=== PATIENT | male | born 1945 | race Two or more races ===

== ENCOUNTER 2017-07-19 15:38 | Inpatient (IN) | payer MEDICAID, MEDICARE ==
[~2017-07-19] VITALS: Ht 160 cm; Wt 61.0 kg
[~2017-07-19 15:38] MED LIST: AMLO10TA2 PO; B-COTAB10 OR; CAR125T OR; CLON0.2T PO; ENAL20TA70 PO; HYDR-3682 PO; SEVE800T8 PO
[2017-07-19] MEDS ORDERED: SODIUM BICARBONATE 8.4% INJ 50ML SYRINGE ONE ×2 (15:53→22:44)
[2017-07-19] MEDS ORDERED: CALCIUM CHLOR(10%) 100MG/ML 10ML SYRINGE IV ONE (15:53)
[2017-07-19] MEDS ORDERED: InsuLIN REG 1unit/0.01ml Soln (100units/ml) ONE (15:54)
[2017-07-19] MEDS ORDERED: CALCIUM GLUC 4.65meq/50ml D5AE 50 ML IV ONE ×3 (16:00→22:30)
[2017-07-19] MEDS ORDERED: InsuLIN REG 1unit/0.01ml Soln (100units/ml) IV ONE ×2 (16:00→22:30)
[2017-07-19] MEDS ORDERED: SODIUM BICARBONATE 8.4 % INJ 50ML VIAL IV ONE ×4 (16:00→22:45)
[2017-07-19] MEDS ORDERED: cloNIDine HCL 0.1 MG TAB PO PRN (16:30)
[2017-07-19] MEDS ORDERED: TEMAZEPAM 15 MG CAP PO PRN (16:30)
[2017-07-19] MEDS ORDERED: ACETAMINOPHEN 325 MG TAB PO PRN (16:30)
[2017-07-19] MEDS ORDERED: HYDROcodone-ACET 5/325MG TAB PO PRN (16:30)
[2017-07-19] MEDS ORDERED: MORPHINE SULF(PF) 0.5MG/ML 10ML VIAL IV PRN (16:30)
[2017-07-19] MEDS ORDERED: DOCUSATE SOD 100 MG CAP PO PRN (16:30)
[2017-07-19] MEDS ORDERED: DEXTROSE (50%) 50ML SYRG IV PRN (16:30)
[2017-07-19] MEDS ORDERED: NITROGLYCERIN 0.4 MG SL TAB SL PRN (16:30)
[2017-07-19] MEDS ORDERED: ONDANSETRON HCL 4 MG/2 ML VIAL IV PRN (16:30)
[2017-07-19 16:44] LABS: Basophils # (auto) 0 uL; Lymphocytes # (auto) 0.6 uL; Monocytes # (auto) 0.4 uL; Neutrophils # (auto) 3.5 uL; White Blood Cell 4.7 10^3/uL (4.4-10.8)
[2017-07-19 16:47] LABS: Eosinophils # (auto) 0.1 uL; Eosinophils % (auto) 3.1 % (0.0-7.0); Hemoglobin 9.2 g/dL (13.5-17.5); Lymphocytes % (auto) 12.6 % (10.0-50.0); Mean Corpuscular Hemoglobin 35.3 pg (28.0-32.0); Mean Corpuscular Hgb Conc. 34.2 g/dL (32.0-36.0); Mean Corpuscular Volume 103.3 fL (80.0-100.0); Monocytes % (auto) 8.6 % (0.0-12.0); Neutrophils % (auto) 74.7 % (37.0-80.0); Red Blood Cells 2.62 10^6/uL (4.5-5.90); Red Cell Distribution Width 12.9 % (11.8-14.3)
[2017-07-19 16:54] LABS: Platelet Count (auto) 107 10^3/uL (140-450)
[2017-07-19] MEDS: InsuLIN REG 1unit/0.01ml Soln (100units/ml) SC SCH ×2 (17:00→21:45)
[2017-07-19 17:09] LABS: Albumin 3.2 g/dL (3.4-5.0); Bilirubin, Total 0.3 mg/dL (0.2-1.0); Calcium 9.8 mg/dL (8.5-10.1); Magnesium 3.1 mg/dL (1.6-2.6); Total Protein 6.7 g/dL (6.4-8.2)
[2017-07-19] MEDS: ACCU-CHEK COMFORT CURVE STRIP VI SCH ×2 (17:25→22:06)
[2017-07-19 17:29] LABS: INR 1.06 (0.9-1.15); Prothrombin Time 11.3 sec (9.27-12.13)
[2017-07-19 17:39] LABS: Potassium 6.3 mmol/L (3.5-5.1)
[2017-07-19] MEDS ORDERED: SODIUM POLYSTYRENE SULF 15GM/60ML SUSP PO ONE (18:15)
[2017-07-19] MEDS: SEVELAMER 800 MG TAB PO SCH (18:58)
[2017-07-19] MEDS: SODIUM CHLOR 0.9% PF (SALINE LOCK) 10ML VIAL/SYR IV SCH (21:27)
[2017-07-19] MEDS: ATORVASTATIN 20 MG TAB PO SCH (21:45)
[2017-07-19] MEDS: GABAPENTIN 300 MG CAP PO SCH (21:45)
[2017-07-19 21:55] LABS: BUN/Creatinine Ratio 9.3; Calcium 9.9 mg/dL (8.5-10.1)
[2017-07-19] MEDS ORDERED: FAMOTIDINE 20 MG TAB PO SCH (22:00)
[2017-07-19] MEDS ORDERED: cloNIDine HCL 0.1 MG TAB PO SCH (22:00)
[2017-07-19 22:09] LABS: Potassium 7.7 mmol/L (3.5-5.1)
[2017-07-19] MEDS ORDERED: DEXTROSE (50%) 50ML SYRG IV ONE ×2 (22:30→22:45)
[2017-07-19] MEDS ORDERED: ALBUTEROL SULF 2.5 MG/0.5ML(0.5%) NEB SOLN NEB ONE (22:45)
[2017-07-20 01:31] LABS: Anion Gap 16 (5-15); Carbon Dioxide 30 mmol/L (21-32); Chloride 92 mmol/L (98-107); Sodium 138 mmol/L (136-145)
[2017-07-20 01:32] LABS: BUN/Creatinine Ratio 9.6; Calcium 9.7 mg/dL (8.5-10.1); GFR African American 6 mL/min; GFR Non-African American 5 mL/min; Glucose 230 mg/dL (74-106)
[2017-07-20 01:34] LABS: Blood Urea Nitrogen 113 mg/dL (7-18); Potassium 5.7 mmol/L (3.5-5.1)
[2017-07-20 05:49] LABS: Basophils # (auto) 0 uL; Eosinophils # (auto) 0.1 uL; Eosinophils % (auto) 1.7 % (0.0-7.0); Hemoglobin 9.7 g/dL (13.5-17.5); Lymphocytes # (auto) 0.9 uL; Monocytes # (auto) 0.5 uL; Nucleated Red Blood Cells % 0.1 %
[2017-07-20 05:53] LABS: Basophils % (auto) 0.8 % (0.0-2.0); Hematocrit 28.1 % (41.0-53.0); Lymphocytes % (auto) 17.1 % (10.0-50.0); Mean Corpuscular Hemoglobin 35.9 pg (28.0-32.0); Mean Corpuscular Hgb Conc. 34.6 g/dL (32.0-36.0); Mean Corpuscular Volume 103.6 fL (80.0-100.0); Monocytes % (auto) 9.9 % (0.0-12.0); Neutrophils # (auto) 3.8 uL; Neutrophils % (auto) 70.5 % (37.0-80.0); Platelet Count (auto) 102 10^3/uL (140-450); Red Blood Cells 2.71 10^6/uL (4.5-5.90); Red Cell Distribution Width 13.1 % (11.8-14.3); White Blood Cell 5.4 10^3/uL (4.4-10.8)
[2017-07-20] MEDS: SODIUM CHLOR 0.9% PF (SALINE LOCK) 10ML VIAL/SYR IV SCH ×3 (06:20→22:00)
[2017-07-20 06:37] LABS: Albumin 3.5 g/dL (3.4-5.0); BUN/Creatinine Ratio 9.6; Bilirubin, Total 0.4 mg/dL (0.2-1.0); Calcium 9.6 mg/dL (8.5-10.1); Potassium 5.2 mmol/L (3.5-5.1); Total Protein 6.8 g/dL (6.4-8.2)
[2017-07-20] MEDS: InsuLIN REG 1unit/0.01ml Soln (100units/ml) SC SCH ×4 (07:00→22:00)
[2017-07-20] MEDS: ACCU-CHEK COMFORT CURVE STRIP VI SCH ×4 (07:04→22:00)
[2017-07-20] MEDS: SEVELAMER 800 MG TAB PO SCH ×3 (08:00→18:00)
[2017-07-20] MEDS: Boost Glucose Control 8 Ounces PO SCH ×3 (08:00→18:00)
[2017-07-20] MEDS ORDERED: EPOETIN ALFA 10,000 UNIT/1 ML VIAL IV ONE (09:00)
[2017-07-20] MEDS: B-COMPLEX W/ C & FOLIC ACID(NEPHROVITE TAB) PO SCH (09:41)
[2017-07-20] MEDS: MULTIPLE VITAMIN TAB PO SCH (09:41)
[2017-07-20] MEDS: amLODIPine BESYLATE 5 MG TAB PO SCH (09:42)
[2017-07-20] MEDS: NALBUPHINE HCL 10 MG/1ml INJECTION IV PRN ×3 (11:29→12:39)
[2017-07-20 14:04] LABS: Albumin 3.8 g/dL (3.4-5.0); BUN/Creatinine Ratio 7.1; Calcium 9.1 mg/dL (8.5-10.1); Potassium 4.8 mmol/L (3.5-5.1)
[2017-07-20 14:06] LABS: Bilirubin, Total 0.6 mg/dL (0.2-1.0); Total Protein 8.1 g/dL (6.4-8.2)
[2017-07-20 17:11] VITALS: BP 136/56
[2017-07-20] MEDS: GABAPENTIN 300 MG CAP PO SCH (22:00)
[2017-07-20] MEDS: FAMOTIDINE 20 MG TAB PO SCH (22:00)
[2017-07-20] MEDS: ATORVASTATIN 20 MG TAB PO SCH (22:00)
[2017-07-21 05:26] LABS: Basophils # (auto) 0.1 uL; Eosinophils # (auto) 0.1 uL; Lymphocytes # (auto) 0.6 uL; Monocytes # (auto) 0.5 uL; Monocytes % (auto) 8.2 % (0.0-12.0); Neutrophils # (auto) 4.7 uL; Nucleated Red Blood Cells % 0.1 %; Platelet Count (auto) 134 10^3/uL (140-450)
[2017-07-21 05:28] LABS: Basophils % (auto) 1.2 % (0.0-2.0); Eosinophils % (auto) 2.1 % (0.0-7.0); Hematocrit 30.9 % (41.0-53.0); Hemoglobin 10.7 g/dL (13.5-17.5); Lymphocytes % (auto) 10.5 % (10.0-50.0); Mean Corpuscular Hgb Conc. 34.6 g/dL (32.0-36.0); Mean Corpuscular Volume 103.2 fL (80.0-100.0); Red Blood Cells 2.97 10^6/uL (4.5-5.90); Red Cell Distribution Width 13.1 % (11.8-14.3)
[2017-07-21 05:29] LABS: Mean Corpuscular Hemoglobin 35.3 pg (28.0-32.0)
[2017-07-21 05:42] LABS: BUN/Creatinine Ratio 7.1; Calcium 8.8 mg/dL (8.5-10.1); Magnesium 2.5 mg/dL (1.6-2.6); Potassium 5.4 mmol/L (3.5-5.1)
[2017-07-21] MEDS: SODIUM CHLOR 0.9% PF (SALINE LOCK) 10ML VIAL/SYR IV SCH ×3 (06:13→22:14)
[2017-07-21] MEDS: ACCU-CHEK COMFORT CURVE STRIP VI SCH ×4 (07:08→22:23)
[2017-07-21] MEDS: InsuLIN REG 1unit/0.01ml Soln (100units/ml) SC SCH ×4 (07:08→22:23)
[2017-07-21] MEDS: Boost Glucose Control 8 Ounces PO SCH ×3 (08:30→18:43)
[2017-07-21] MEDS: MULTIPLE VITAMIN TAB PO SCH (10:03)
[2017-07-21] MEDS: SEVELAMER 800 MG TAB PO SCH ×3 (10:03→18:43)
[2017-07-21] MEDS: B-COMPLEX W/ C & FOLIC ACID(NEPHROVITE TAB) PO SCH (10:03)
[2017-07-21] MEDS: amLODIPine BESYLATE 5 MG TAB PO SCH (10:03)
[2017-07-21] MEDS ORDERED: CAR3125T PO (12:12)
[2017-07-21] MEDS ORDERED: CLON0.1T PO ×2 (12:12→15:24)
[2017-07-21] MEDS ORDERED: ENAL20TA70 PO ×2 (12:12→13:26)
[2017-07-21] MEDS ORDERED: amLODIPine BESYLATE 5 MG TAB PO ONE (14:15)
[2017-07-21] MEDS ORDERED: CAR125T PO (15:24)
[2017-07-21] MEDS ORDERED: LORazepam 0.5 MG TAB PO ONE (16:30)
[2017-07-21] MEDS ORDERED: CARVEDILOL 3.125 MG TAB PO ONE (16:30)
[2017-07-21] MEDS ORDERED: cloNIDine HCL 0.1 MG TAB PO SCH ×2 (22:00)
[2017-07-21] MEDS: CARVEDILOL 3.125 MG TAB PO SCH (22:00)
[2017-07-21] MEDS: cloNIDine HCL 0.1 MG TAB PO SCH (22:14)
[2017-07-21] MEDS: ATORVASTATIN 20 MG TAB PO SCH (22:15)
[2017-07-21] MEDS: GABAPENTIN 300 MG CAP PO SCH (22:15)
[2017-07-21] MEDS: FAMOTIDINE 20 MG TAB PO SCH (22:15)
[2017-07-22 00:27] VITALS: BP 146/64
[2017-07-22 05:03] VITALS: BP 139/56
[2017-07-22] MEDS: ACCU-CHEK COMFORT CURVE STRIP VI SCH ×4 (05:49→23:13)
[2017-07-22] MEDS: InsuLIN REG 1unit/0.01ml Soln (100units/ml) SC SCH ×4 (05:49→22:00)
[2017-07-22] MEDS: SODIUM CHLOR 0.9% PF (SALINE LOCK) 10ML VIAL/SYR IV SCH ×3 (05:49→22:56)
[2017-07-22 06:48] LABS: Potassium 5.5 mmol/L (3.5-5.1)
[2017-07-22 07:11] LABS: BUN/Creatinine Ratio 7.7
[2017-07-22] MEDS ORDERED: LORazepam 0.5 MG TAB PO PRN (09:15)
[2017-07-22] MEDS ORDERED: amLODIPine BESYLATE 5 MG TAB PO SCH (10:00)
[2017-07-22] MEDS ORDERED: ENALAPRIL MALEATE 10 MG TAB PO SCH (10:00)
[2017-07-22] MEDS: CARVEDILOL 3.125 MG TAB PO SCH ×2 (10:00→22:00)
[2017-07-22] MEDS: cloNIDine HCL 0.1 MG TAB PO SCH ×3 (10:00→22:59)
[2017-07-22] MEDS: HYDROcodone-ACET 10/325MG TAB PO PRN ×4 (10:00→17:37)
[2017-07-22] MEDS: SEVELAMER 800 MG TAB PO SCH ×3 (11:14→18:08)
[2017-07-22] MEDS: Boost Glucose Control 8 Ounces PO SCH ×3 (11:14→18:08)
[2017-07-22] MEDS: B-COMPLEX W/ C & FOLIC ACID(NEPHROVITE TAB) PO SCH (11:18)
[2017-07-22] MEDS: MULTIPLE VITAMIN TAB PO SCH (11:18)
[2017-07-22] MEDS ORDERED: CLON0.1T PO ×2 (13:35)
[2017-07-22] MEDS ORDERED: CAR3125T PO ×2 (13:35)
[2017-07-22 16:33] VITALS: BP 89/53
[2017-07-22 18:49] VITALS: BP 152/69
[2017-07-22] MEDS ORDERED: VANCOMYCIN PER PHARMACY 0 MG IV SCH (20:00)
[2017-07-22] MEDS ORDERED: VANCOMYCIN HCL 1000 MG VL IR ONE (20:00)
[2017-07-22] MEDS ORDERED: VANCOMYCIN 1GM/250ML 250 ML IV ONE (20:15)
[2017-07-22] MEDS: ACETAMINOPHEN 500 MG TAB PO PRN (20:15)
[2017-07-22 21:04] VITALS: BP 150/74
[2017-07-22] MEDS: FAMOTIDINE 20 MG TAB PO SCH (22:57)
[2017-07-22] MEDS: PIPERACILLIN-TAZOB 2.25GM 50 ML IV SCH (22:57)
[2017-07-22] MEDS: GABAPENTIN 300 MG CAP PO SCH (22:58)
[2017-07-22] MEDS: ATORVASTATIN 20 MG TAB PO SCH (23:13)
[2017-07-23] VITALS (7 sets, daily range): BP systolic 127–147; BP diastolic 53–74
[2017-07-23] MEDS: SODIUM CHLOR 0.9% PF (SALINE LOCK) 10ML VIAL/SYR IV SCH ×3 (06:47→22:24)
[2017-07-23] MEDS: ACCU-CHEK COMFORT CURVE STRIP VI SCH ×4 (06:48→22:00)
[2017-07-23] MEDS: InsuLIN REG 1unit/0.01ml Soln (100units/ml) SC SCH ×5 (06:49→23:00)
[2017-07-23] MEDS: HYDROcodone-ACET 10/325MG TAB PO PRN ×4 (07:33→18:27)
[2017-07-23] MEDS: CARVEDILOL 3.125 MG TAB PO SCH ×3 (10:00→23:54)
[2017-07-23] MEDS: cloNIDine HCL 0.1 MG TAB PO SCH ×2 (10:00→22:00)
[2017-07-23] MEDS: PIPERACILLIN-TAZOB 2.25GM 50 ML IV SCH ×2 (10:25→22:00)
[2017-07-23] MEDS: Boost Glucose Control 8 Ounces PO SCH ×3 (10:25→17:09)
[2017-07-23] MEDS: SEVELAMER 800 MG TAB PO SCH ×3 (10:25→17:53)
[2017-07-23] MEDS: B-COMPLEX W/ C & FOLIC ACID(NEPHROVITE TAB) PO SCH (10:26)
[2017-07-23] MEDS: MULTIPLE VITAMIN TAB PO SCH (10:26)
[2017-07-23 14:54] LABS: Eosinophils # (auto) 0 uL; Hematocrit 26.1 % (41.0-53.0); Hemoglobin 8.9 g/dL (13.5-17.5); Lymphocytes # (auto) 0.5 uL; Monocytes # (auto) 0.4 uL
[2017-07-23 14:55] LABS: Basophils # (auto) 0 uL; Basophils % (auto) 0.9 % (0.0-2.0); Eosinophils % (auto) 0.9 % (0.0-7.0); Lymphocytes % (auto) 9.4 % (10.0-50.0); Mean Corpuscular Hemoglobin 35.1 pg (28.0-32.0); Mean Corpuscular Hgb Conc. 34.1 g/dL (32.0-36.0); Mean Corpuscular Volume 102.9 fL (80.0-100.0); Monocytes % (auto) 7.2 % (0.0-12.0); Neutrophils # (auto) 4.5 uL; Neutrophils % (auto) 81.6 % (37.0-80.0); Red Blood Cells 2.54 10^6/uL (4.5-5.90); Red Cell Distribution Width 13.5 % (11.8-14.3); White Blood Cell 5.5 10^3/uL (4.4-10.8)
[2017-07-23 15:10] LABS: Platelet Count (auto) 100 10^3/uL (140-450)
[2017-07-23] MEDS ORDERED: VANCOMYCIN 500 MG in D5W 5% 100 ML IV ONE (16:00)
[2017-07-23] MEDS ORDERED: EPOETIN ALFA 10,000 UNIT/1 ML VIAL IV ONE (19:30)
[2017-07-23] MEDS: ACETAMINOPHEN 500 MG TAB PO PRN (20:03)
[2017-07-23] MEDS: GABAPENTIN 300 MG CAP PO SCH ×2 (22:00→23:00)
[2017-07-23] MEDS: FAMOTIDINE 20 MG TAB PO SCH ×2 (22:00→23:00)
[2017-07-23] MEDS: ATORVASTATIN 20 MG TAB PO SCH ×2 (22:00→23:00)
[2017-07-24 05:19] VITALS: BP 134/70
[2017-07-24] MEDS: SODIUM CHLOR 0.9% PF (SALINE LOCK) 10ML VIAL/SYR IV SCH ×2 (06:00→16:29)
[2017-07-24] MEDS: ACCU-CHEK COMFORT CURVE STRIP VI SCH ×3 (06:44→17:15)
[2017-07-24] MEDS: Boost Glucose Control 8 Ounces PO SCH ×2 (07:54→11:49)
[2017-07-24 08:00] VITALS: BP 146/97
[2017-07-24 08:23] LABS: Potassium 4.3 mmol/L (3.5-5.1)
[2017-07-24 08:27] LABS: Albumin 2.9 g/dL (3.4-5.0); Calcium 8.4 mg/dL (8.5-10.1)
[2017-07-24 08:30] LABS: Total Protein 6.6 g/dL (6.4-8.2)
[2017-07-24] MEDS: SEVELAMER 800 MG TAB PO SCH ×2 (08:50→11:49)
[2017-07-24 09:00] VITALS: BP 103/76
[2017-07-24] MEDS: MULTIPLE VITAMIN TAB PO SCH (09:57)
[2017-07-24] MEDS: PIPERACILLIN-TAZOB 2.25GM 50 ML IV SCH (09:57)
[2017-07-24] MEDS: B-COMPLEX W/ C & FOLIC ACID(NEPHROVITE TAB) PO SCH (09:57)
[2017-07-24] MEDS: cloNIDine HCL 0.1 MG TAB PO SCH (09:58)
[2017-07-24] MEDS: CARVEDILOL 3.125 MG TAB PO SCH (09:58)
[2017-07-24] MEDS: InsuLIN REG 1unit/0.01ml Soln (100units/ml) SC SCH ×2 (11:48→17:00)
[2017-07-24 12:58] VITALS: BP 118/72
[2017-07-24 17:31] VITALS: BP 133/59
== END 2017-07-24 18:41 | disposition home health service (06) | DRG 922 ==
LOC: EDBD 15:38 → ER 15:38 → OVERFLOW 15:39 → TELE-WESTW 07-21 19:41
PROVIDERS: ADMIT Internal Medicine; ATTEND Internal Medicine Pulmonary Disease
PROC: 5A1D70Z Performance of Urinary Filtration, Intermittent, Less than 6 Hours Per Day (ICD-10-PCS; principal; 2017-07-19)
PROC: 5A1D70Z Performance of Urinary Filtration, Intermittent, Less than 6 Hours Per Day (ICD-10-PCS; 2017-07-20)
DX: T67.0XXA Heatstroke and sunstroke, initial encounter (principal); N18.6 End stage renal disease; J96.01 Acute respiratory failure with hypoxia; E44.0 Moderate protein-calorie malnutrition; I13.2 Hypertensive heart and chronic kidney disease with heart failure and with stage 5 chronic kidney disease, or end stage renal disease; E87.1 Hypo-osmolality and hyponatremia; I50.30 Unspecified diastolic (congestive) heart failure; R00.1 Bradycardia, unspecified; T46.5X5A Adverse effect of other antihypertensive drugs, initial encounter; T50.995A Adverse effect of other drugs, medicaments and biological substances, initial encounter; E87.5 Hyperkalemia; E83.41 Hypermagnesemia; Z99.2 Dependence on renal dialysis; E11.21 Type 2 diabetes mellitus with diabetic nephropathy; I70.0 Atherosclerosis of aorta; E11.22 Type 2 diabetes mellitus with diabetic chronic kidney disease; D63.8 Anemia in other chronic diseases classified elsewhere; E78.5 Hyperlipidemia, unspecified; E86.0 Dehydration; I25.5 Ischemic cardiomyopathy; I27.20 Pulmonary hypertension, unspecified; E21.3 Hyperparathyroidism, unspecified; Z79.899 Other long term (current) drug therapy; X30.XXXA Exposure to excessive natural heat, initial encounter; Y93.89 Activity, other specified; Y92.89 Other specified places as the place of occurrence of the external cause; Y99.8 Other external cause status; Z68.23 Body mass index [BMI] 23.0-23.9, adult
CPT/HCPCS: 36415; 36600; 71045; 80048; 80053; 80202; 82805; 82962; 83036; 83735; 84443; 84484; 85025; 85379; 85610; 85730; 87040; 87081; 90935; 93005; 93306; 94640; 96374; 96375; 97163; 99291; A4565; G0378; J0610; J0885; J1815; J2405; J2543; J7060

== ENCOUNTER 2017-07-25 02:39 | Inpatient (IN) | payer MEDICARE, OTHER ==
[~2017-07-25] VITALS: Ht 160 cm; Wt 60.6 kg
[~2017-07-25 02:39] MED LIST changes: +CAR125T PO; +CAR3125T PO; +CLON0.1T PO
[2017-07-25 10:03] LABS: Basophils # (auto) 0 uL; Eosinophils # (auto) 0.1 uL; Hemoglobin 9.3 g/dL (13.5-17.5); Lymphocytes # (auto) 0.4 uL; Monocytes # (auto) 0.4 uL; Red Cell Distribution Width 13.5 % (11.8-14.3)
[2017-07-25 10:05] LABS: Basophils % (auto) 0.7 % (0.0-2.0); Eosinophils % (auto) 3.2 % (0.0-7.0); Lymphocytes % (auto) 9.2 % (10.0-50.0); Mean Corpuscular Hemoglobin 34.3 pg (28.0-32.0); Mean Corpuscular Hgb Conc. 33.2 g/dL (32.0-36.0); Monocytes % (auto) 9.6 % (0.0-12.0); Neutrophils # (auto) 3.1 uL; Neutrophils % (auto) 77.3 % (37.0-80.0); Platelet Count (auto) 117 10^3/uL (140-450); White Blood Cell 4.1 10^3/uL (4.4-10.8)
[2017-07-25 10:06] LABS: Mean Corpuscular Volume 103.4 fL (80.0-100.0)
[2017-07-25 10:25] LABS: Albumin 3.2 g/dL (3.4-5.0); BUN/Creatinine Ratio 7.5; Bilirubin, Total 0.7 mg/dL (0.2-1.0); Calcium 9.1 mg/dL (8.5-10.1); Magnesium 2.8 mg/dL (1.6-2.6); Potassium 4.7 mmol/L (3.5-5.1); Total Protein 7.6 g/dL (6.4-8.2)
[2017-07-25] MEDS ORDERED: LORazepam 0.5 MG TAB PO PRN (10:45)
[2017-07-25] MEDS ORDERED: NITROGLYCERIN 0.4 MG SL TAB SL PRN (10:45)
[2017-07-25] MEDS ORDERED: ACETAMINOPHEN 500 MG TAB PO PRN (10:45)
[2017-07-25] MEDS ORDERED: DEXTROSE (50%) 50ML SYRG IV PRN (10:45)
[2017-07-25] MEDS ORDERED: ALBUTEROL SULF 2.5 MG/0.5ML(0.5%) NEB SOLN NEB PRN (10:45)
[2017-07-25] MEDS ORDERED: HYDROcodone-ACET 5/325MG TAB PO PRN (10:45)
[2017-07-25] MEDS ORDERED: NALBUPHINE HCL 10 MG/1ml INJECTION IM PRN (10:45)
[2017-07-25] MEDS ORDERED: MORPHINE SULF(PF) 0.5MG/ML 10ML VIAL IV PRN (10:45)
[2017-07-25] MEDS ORDERED: TEMAZEPAM 15 MG CAP PO PRN (10:45)
[2017-07-25] MEDS ORDERED: PROMETHAZINE HCL 25 MG/ML 1ML IV PRN (10:45)
[2017-07-25] MEDS ORDERED: cloNIDine HCL 0.1 MG TAB PO ONE (11:00)
[2017-07-25] MEDS ORDERED: FUROSEMIDE 40 MG/4 ML VIAL IV ONE (11:00)
[2017-07-25] MEDS ORDERED: NITROGLYCERIN 0.2MG/HR TOPICAL PATCH TD ONE (11:00)
[2017-07-25] MEDS ORDERED: CARVEDILOL 3.125 MG TAB PO ONE (11:00)
[2017-07-25] MEDS ORDERED: amLODIPine BESYLATE 5 MG TAB PO ONE (11:00)
[2017-07-25] MEDS: B-COMPLEX W/ C & FOLIC ACID(NEPHROVITE TAB) PO SCH (11:05)
[2017-07-25 11:06] VITALS: BP 150/68
[2017-07-25] MEDS: hydrOXYzine 25 MG TAB or CAP PO SCH ×2 (11:21→22:11)
[2017-07-25] MEDS: DOXYCYCLINE 100MG/250ML 250 ML IV SCH ×2 (11:34→22:54)
[2017-07-25] MEDS: ACCU-CHEK COMFORT CURVE STRIP VI SCH ×3 (12:01→22:13)
[2017-07-25] MEDS: InsuLIN REG 1unit/0.01ml Soln (100units/ml) SC SCH ×3 (12:02→22:49)
[2017-07-25] MEDS: SEVELAMER 800 MG TAB PO SCH (12:13)
[2017-07-25] MEDS: ALBUTEROL SULF 2.5 MG/0.5ML(0.5%) NEB SOLN NEB SCH ×2 (12:25→19:01)
[2017-07-25] MEDS: IPRATROPIUM BROM 0.5 MG/2.5ML INH SOL NEB SCH ×2 (12:25→19:01)
[2017-07-25] MEDS: SODIUM CHLOR 0.9% PF (SALINE LOCK) 10ML VIAL/SYR IV SCH ×2 (14:17→22:12)
[2017-07-25 18:45] VITALS: BP 123/58
[2017-07-25 20:00] VITALS: BP 121/59
[2017-07-25] MEDS ORDERED: FUROSEMIDE 40 MG/4 ML VIAL IV SCH (22:00)
[2017-07-25 22:06] VITALS: BP 121/59
[2017-07-25] MEDS: CARVEDILOL 3.125 MG TAB PO SCH (22:11)
[2017-07-26] VITALS (7 sets, daily range): BP systolic 118–157; BP diastolic 50–78
[2017-07-26] MEDS: cloNIDine HCL 0.1 MG TAB PO SCH ×3 (00:09→22:00)
[2017-07-26] MEDS: SODIUM CHLOR 0.9% PF (SALINE LOCK) 10ML VIAL/SYR IV SCH ×2 (06:19→14:57)
[2017-07-26] MEDS: ACCU-CHEK COMFORT CURVE STRIP VI SCH ×4 (06:21→22:00)
[2017-07-26] MEDS: InsuLIN REG 1unit/0.01ml Soln (100units/ml) SC SCH ×4 (06:32→22:00)
[2017-07-26] MEDS: ALBUTEROL SULF 2.5 MG/0.5ML(0.5%) NEB SOLN NEB SCH ×4 (06:47→18:45)
[2017-07-26] MEDS: IPRATROPIUM BROM 0.5 MG/2.5ML INH SOL NEB SCH ×4 (06:47→18:45)
[2017-07-26 07:26] LABS: Basophils # (auto) 0 uL; Eosinophils # (auto) 0.2 uL; Lymphocytes # (auto) 0.4 uL; Mean Corpuscular Hemoglobin 35.9 pg (28.0-32.0); Monocytes # (auto) 0.3 uL; White Blood Cell 3.3 10^3/uL (4.4-10.8)
[2017-07-26 07:28] LABS: Basophils % (auto) 0.8 % (0.0-2.0); Eosinophils % (auto) 5.2 % (0.0-7.0); Hematocrit 23.6 % (41.0-53.0); Hemoglobin 8.3 g/dL (13.5-17.5); Lymphocytes % (auto) 11.8 % (10.0-50.0); Mean Corpuscular Hgb Conc. 34.9 g/dL (32.0-36.0); Mean Corpuscular Volume 102.9 fL (80.0-100.0); Monocytes % (auto) 10.1 % (0.0-12.0); Neutrophils # (auto) 2.4 uL; Neutrophils % (auto) 72.1 % (37.0-80.0); Platelet Count (auto) 107 10^3/uL (140-450); Red Cell Distribution Width 13.4 % (11.8-14.3)
[2017-07-26] MEDS: SEVELAMER 800 MG TAB PO SCH ×4 (08:00→19:42)
[2017-07-26 08:05] LABS: Albumin 2.7 g/dL (3.4-5.0); BUN/Creatinine Ratio 7.8; Bilirubin, Total 0.6 mg/dL (0.2-1.0); Calcium 8.5 mg/dL (8.5-10.1); Potassium 5.3 mmol/L (3.5-5.1); Total Protein 6.5 g/dL (6.4-8.2)
[2017-07-26] MEDS: B-COMPLEX W/ C & FOLIC ACID(NEPHROVITE TAB) PO SCH (10:00)
[2017-07-26] MEDS: CARVEDILOL 3.125 MG TAB PO SCH ×2 (10:00→22:00)
[2017-07-26] MEDS ORDERED: NITROGLYCERIN 0.2MG/HR TOPICAL PATCH TD SCH (10:00)
[2017-07-26] MEDS ORDERED: amLODIPine BESYLATE 5 MG TAB PO SCH (10:00)
[2017-07-26] MEDS: hydrOXYzine 25 MG TAB or CAP PO SCH ×2 (10:00→22:00)
[2017-07-26] MEDS: DOXYCYCLINE 100MG/250ML 250 ML IV SCH (11:44)
[2017-07-26] MEDS ORDERED: EPOETIN ALFA 10,000 UNIT/1 ML VIAL IV ONE (13:45)
[2017-07-26] MEDS ORDERED: SODIUM CHL 0.9% 1000 ML BAG XX ONE (13:45)
[2017-07-26] MEDS ORDERED: IOHEXOL 350 MG/ML 100ML IJ ONE (16:18)
== END 2017-07-26 22:55 | disposition home health service (06) | DRG 291 ==
LOC: ER 02:39 → TELE 02:40 → TELE-EAST 18:00
PROVIDERS: ADMIT Internal Medicine; ATTEND Internal Medicine
PROC: 5A1D70Z Performance of Urinary Filtration, Intermittent, Less than 6 Hours Per Day (ICD-10-PCS; principal; 2017-07-26)
DX: I13.2 Hypertensive heart and chronic kidney disease with heart failure and with stage 5 chronic kidney disease, or end stage renal disease (principal); J96.01 Acute respiratory failure with hypoxia; N18.6 End stage renal disease; I50.33 Acute on chronic diastolic (congestive) heart failure; E44.0 Moderate protein-calorie malnutrition; E11.22 Type 2 diabetes mellitus with diabetic chronic kidney disease; D63.8 Anemia in other chronic diseases classified elsewhere; Z99.2 Dependence on renal dialysis; Z99.81 Dependence on supplemental oxygen; Z79.4 Long term (current) use of insulin; Z79.899 Other long term (current) drug therapy
CPT/HCPCS: 36415; 36600; 71045; 71275; 80053; 82550; 82805; 82962; 83036; 83735; 83880; 84484; 85025; 85379; 85652; 87040; 90935; 94640; 94761; 96365; 96375; J0885; J1642; J1815; J3490

== ENCOUNTER 2018-04-26 10:32 | Inpatient (IN) | payer MEDICARE, MEDICAID ==
[~2018-04-26] VITALS: Ht 165.1 cm; Wt 59.4 kg
[~2018-04-26 10:32] MED LIST changes: +AML5T PO; -AMLO10TA2 PO; +ASPI81TA27 PO; +ATOR40TA52 PO; -B-COTAB10 OR; -CAR125T OR; -CAR125T PO; -CLON0.1T PO; -CLON0.2T PO; +ENAL2.5T PO; -ENAL20TA70 PO; +GABA300C10 PO; -HYDR-3682 PO; +SEVE800T10 PO; -SEVE800T8 PO
[2018-04-26 11:38] LABS: Basophils # (auto) 0 uL; Lymphocytes # (auto) 0.3 uL; Monocytes # (auto) 0.3 uL; Red Cell Distribution Width 14.5 % (11.8-14.3)
[2018-04-26 11:40] LABS: Basophils % (auto) 1.2 % (0.0-2.0); Eosinophils # (auto) 0.1 uL; Eosinophils % (auto) 1.9 % (0.0-7.0); Hematocrit 30.7 % (41.0-53.0); Lymphocytes % (auto) 10.8 % (10.0-50.0); Mean Corpuscular Hemoglobin 33.7 pg (28.0-32.0); Mean Corpuscular Hgb Conc. 32.7 g/dL (32.0-36.0); Mean Corpuscular Volume 103.1 fL (80.0-100.0); Monocytes % (auto) 8.8 % (0.0-12.0); Neutrophils # (auto) 2.3 uL; Neutrophils % (auto) 77.3 % (37.0-80.0); Platelet Count (auto) 107 10^3/uL (140-450); Red Blood Cells 2.97 10^6/uL (4.5-5.90)
[2018-04-26 11:50] LABS: INR 1.11 (0.9-1.15); Partial Thromboplastin Time 29.7 sec (23.78-33.04); Prothrombin Time 11.8 sec (9.27-12.13)
[2018-04-26 11:52] LABS: Albumin 3.4 g/dL (3.4-5.0); Calcium 8.3 mg/dL (8.5-10.1); Potassium 4.4 mmol/L (3.5-5.1)
[2018-04-26 11:59] LABS: BUN/Creatinine Ratio 5.9; Total Protein 7.4 g/dL (6.4-8.2)
[2018-04-26] MEDS ORDERED: ENOXAPARIN SOD 80 MG/0.8ML SYRINGE SC ONE (13:45)
[2018-04-26] MEDS ORDERED: DEXTROSE (50%) 50ML SYRG IV PRN (15:00)
[2018-04-26] MEDS ORDERED: HYDROmorphone HCL 2 MG/ML VL IV PRN (15:00)
[2018-04-26] MEDS ORDERED: ONDANSETRON HCL 4 MG/2 ML VIAL IV PRN (15:00)
[2018-04-26] MEDS ORDERED: NITROGLYCERIN 0.4 MG SL TAB SL PRN (15:00)
[2018-04-26 16:36] LABS: Urine Bacteria FEW /hpf (None Seen); Urine Blood 1+ /uL (Negative); Urine WBC 1533 /hpf (0 - 3); Urine WBC Clumps PRESENT /hpf (None Seen)
[2018-04-26] MEDS: ACCU-CHEK COMFORT CURVE STRIP VI SCH ×2 (17:00→22:18)
[2018-04-26] MEDS: InsuLIN REG 1unit/0.01ml Soln (100units/ml) SC SCH ×2 (18:00→22:00)
[2018-04-26] MEDS: SEVELAMER 800 MG TAB PO SCH (18:20)
[2018-04-26] MEDS: GABAPENTIN 300 MG CAP PO SCH (22:17)
[2018-04-26] MEDS: CARVEDILOL 3.125 MG TAB PO SCH (22:17)
[2018-04-26] MEDS: ATORVASTATIN 20 MG TAB PO SCH (22:17)
--- NOTE | 2018-04-26 23:34 | NUR ---
Telemetry admit from ER JASPAL MCCOLLUMHEATHER admitted to Telemetry unit. Patient oriented to JEWELS WHYTE RN primary RN, unit, room, bed, and unit policies regarding patient care and visiting hours. Patient now on continuous telemetry monitoring, tele box # 33 and telemetry reading on arrival to unit is SB. Patient placed on bedside oxygen, weighed by bedscale and encouraged to call if they need something. All questions and concerns addressed, patient verbalized understanding.
[2018-04-27] VITALS: BP 143/71
--- NOTE | 2018-04-27 | NUR ---
MED REC PT UNABLE TO RECALL LIST OF HOME MEDICATIONS. PT STATES HE WILL ASK DAUGHTER IN LAW WHEN SHE COMES TO VISIT. DOES NOT REMEMBER DAUGHTER IN LAW'S PHONE NUMBER.
[2018-04-27 04:59] LABS: Basophils # (auto) 0 uL; Eosinophils # (auto) 0.1 uL; Hemoglobin 9.7 g/dL (13.5-17.5); Lymphocytes # (auto) 0.4 uL; Mean Corpuscular Hemoglobin 34.4 pg (28.0-32.0); Neutrophils # (auto) 2.4 uL; White Blood Cell 3.2 10^3/uL (4.4-10.8)
[2018-04-27 05:02] LABS: Basophils % (auto) 1.2 % (0.0-2.0); Eosinophils % (auto) 3.2 % (0.0-7.0); Hematocrit 28.8 % (41.0-53.0); Lymphocytes % (auto) 12.8 % (10.0-50.0); Mean Corpuscular Hgb Conc. 33.7 g/dL (32.0-36.0); Mean Corpuscular Volume 102.1 fL (80.0-100.0); Monocytes # (auto) 0.2 uL; Monocytes % (auto) 7.5 % (0.0-12.0); Neutrophils % (auto) 75.3 % (37.0-80.0); Platelet Count (auto) 105 10^3/uL (140-450); Red Blood Cells 2.82 10^6/uL (4.5-5.90); Red Cell Distribution Width 14.5 % (11.8-14.3)
[2018-04-27 05:26] VITALS: BP 157/64
[2018-04-27 05:40] LABS: Calcium 8.5 mg/dL (8.5-10.1); Magnesium 2.8 mg/dL (1.6-2.6); Potassium 4.7 mmol/L (3.5-5.1)
[2018-04-27 05:43] LABS: BUN/Creatinine Ratio 7.2; Phosphorus 2.6 mg/dL (2.5-4.90)
[2018-04-27] MEDS: ACCU-CHEK COMFORT CURVE STRIP VI SCH ×4 (06:16→23:03)
[2018-04-27] MEDS: InsuLIN REG 1unit/0.01ml Soln (100units/ml) SC SCH ×4 (06:16→22:00)
--- NOTE | 2018-04-27 07:23 | NUR ---
Endorsed care to day shift RAMEZ Morales. Pt resting in bed, no s/s distress.
--- NOTE | 2018-04-27 08:00 | NUR ---
Opening Shift Note Assumed care of patient, awake and alert. [place]ian speaking. No S/S of distress/SOB or pain. Awaiting nephrology consult re: dialysis. 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 Instructed on POC and to call for assist PRN, will continue to monitor for changes Q1hr and PRN.
[2018-04-27] MEDS: SEVELAMER 800 MG TAB PO SCH ×3 (08:35→17:12)
[2018-04-27 08:49] VITALS: BP 149/76
[2018-04-27] MEDS: PANTOPRAZOLE 40 MG TAB PO SCH (10:20)
[2018-04-27] MEDS: ASPirin-EC 81 mg tab PO SCH (10:20)
[2018-04-27] MEDS: ENALAPRIL MALEATE 10 MG TAB PO SCH (10:21)
[2018-04-27] MEDS: amLODIPine BESYLATE 5 MG TAB PO SCH (10:21)
[2018-04-27] MEDS: CARVEDILOL 3.125 MG TAB PO SCH ×3 (10:24→22:33)
[2018-04-27 12:13] VITALS: BP 129/65
[2018-04-27 16:42] VITALS: BP 141/72
--- NOTE | 2018-04-27 19:15 | NUR ---
Opening Shift Note Assumed care of patient from day shift RAMEZ Morales. Pt is awake and alert and oriented x4. No S/S of distress/SOB or pain. Safety maintained with bed rails upx2, locked and in lowest position with call alvarez within reach. Instructed on POC and to call for assist PRN, will continue to monitor for changes Q1hr and PRN.
--- NOTE | 2018-04-27 20:53 | NUR ---
RT ABG RT NOTIFIED RN PT QUALIFIES FOR HOME O2 ON D/C
[2018-04-27 22:00] VITALS: BP 134/64
[2018-04-27] MEDS: GABAPENTIN 300 MG CAP PO SCH ×2 (22:00→22:34)
[2018-04-27] MEDS: ATORVASTATIN 20 MG TAB PO SCH ×2 (22:00→22:33)
--- NOTE | 2018-04-28 04:00 | NUR ---
ABNORMAL JERKING/TWITCHING Pt showing new onset jerking/twitching. Pt states he has never had this issue before. Blood sugar 126. BP 151/69, HR 60, RR 20, O2 95%, TEMP 98.2 F. Pt is alert and oriented x4, speech is clear, bilateral lower and upper extremities strong. Will continue to monitor and page hospitalist at 0500. Addendum: 04/28/18 at 0537 by JEWELS WHYET RN RN Hospitalist paged at [phone], awaiting call back. Addendum: 04/28/18 at 0611 by JEWELS WHYTE RN RN Hospitalist returned page. New orders from CHOREOGRAPHY DIRECTOR Evans, CBC and BMP labs ordered. Continue to monitor.
[2018-04-28 05:56] VITALS: BP 151/69
[2018-04-28] MEDS: ACCU-CHEK COMFORT CURVE STRIP VI SCH ×4 (06:26→22:26)
[2018-04-28] MEDS: InsuLIN REG 1unit/0.01ml Soln (100units/ml) SC SCH ×4 (06:26→22:26)
[2018-04-28 06:56] LABS: Basophils # (auto) 0 uL; Eosinophils # (auto) 0.1 uL; Lymphocytes # (auto) 0.4 uL; Monocytes # (auto) 0.3 uL; Neutrophils # (auto) 2.8 uL; Red Blood Cells 2.86 10^6/uL (4.5-5.90); White Blood Cell 3.7 10^3/uL (4.4-10.8)
[2018-04-28 06:58] LABS: Basophils % (auto) 1.1 % (0.0-2.0); Eosinophils % (auto) 3.7 % (0.0-7.0); Hematocrit 29.4 % (41.0-53.0); Hemoglobin 9.9 g/dL (13.5-17.5); Lymphocytes % (auto) 11.8 % (10.0-50.0); Mean Corpuscular Hemoglobin 34.5 pg (28.0-32.0); Mean Corpuscular Hgb Conc. 33.5 g/dL (32.0-36.0); Monocytes % (auto) 7.6 % (0.0-12.0); Neutrophils % (auto) 75.8 % (37.0-80.0); Nucleated Red Blood Cells % 0.1 %; Platelet Count (auto) 111 10^3/uL (140-450); Red Cell Distribution Width 14.3 % (11.8-14.3)
--- NOTE | 2018-04-28 07:03 | NUR ---
Closing Shift Note Endorsed care to day shift RAMEZ Morales. Pt resting in bed, no s/s distress.
[2018-04-28 07:12] LABS: BUN/Creatinine Ratio 8.1; Calcium 8.4 mg/dL (8.5-10.1)
[2018-04-28 07:35] LABS: Potassium 5.6 mmol/L (3.5-5.1)
--- NOTE | 2018-04-28 07:36 | NUR ---
Opening Shift Note Assumed care of patient, awake and alert. Bed is in lowest position, side rails up x2, patient has 3 L/min oxygen via nasal cannula. Patient has a twitch that is more prominent on the right side when he lifts his arms about his shoulders. The right arm will twitch as well as the right side of his face. No S/S of distress/SOB or pain. Patient's son is at bedside. Instructed on POC and to call for assist PRN, will continue to monitor for changes Q1hr and PRN. Addendum: 04/29/18 at 0113 by JADEN STACY RN RN Opening shift note done at 1936 not [id number].
--- NOTE | 2018-04-28 07:38 | NUR ---
Critical Lab Potassium-5.6, paged oncology admin hospitalist thru PBX. Waiting for call back.
[2018-04-28] MEDS ORDERED: SODIUM BICARBONATE 8.4 % INJ 50ML VIAL IV ONE (07:45)
[2018-04-28] MEDS ORDERED: InsuLIN REG 1unit/0.01ml Soln (100units/ml) IV ONE (07:45)
[2018-04-28] MEDS ORDERED: SODIUM POLYSTYRENE SULF 15GM/60ml SUSP or POWDER PO ONE (07:45)
[2018-04-28] MEDS ORDERED: CALCIUM GLUC 4.65meq/50ml D5AE 50 ML IV ONE (07:45)
[2018-04-28] MEDS ORDERED: DEXTROSE (50%) 50ML SYRG IV ONE (07:45)
--- NOTE | 2018-04-28 07:45 | NUR ---
SEBASTIAN Evans returned call, updated on the patient status and critical lab potassium results. Orders received.
[2018-04-28] MEDS: SEVELAMER 800 MG TAB PO SCH ×3 (08:44→18:00)
[2018-04-28 08:55] VITALS: BP 146/65
[2018-04-28] MEDS: CARVEDILOL 3.125 MG TAB PO SCH ×2 (10:00→22:26)
[2018-04-28] MEDS: ENALAPRIL MALEATE 10 MG TAB PO SCH (10:00)
[2018-04-28] MEDS: amLODIPine BESYLATE 5 MG TAB PO SCH ×2 (10:00→18:32)
[2018-04-28 12:04] VITALS: BP 139/62
[2018-04-28] MEDS: PANTOPRAZOLE 40 MG TAB PO SCH (12:18)
[2018-04-28] MEDS: ASPirin-EC 81 mg tab PO SCH (12:18)
--- NOTE | 2018-04-28 13:00 | NUR ---
Paged Dr. Christianson regarding continuous muscle twitching. Potassium correction done. Patient is for hemodialysis today. Waiting for call back.
[2018-04-28 16:45] VITALS: BP 136/66
--- NOTE | 2018-04-28 18:00 | NUR ---
Hemodialysis done. 2.7 liters out.
--- NOTE | 2018-04-28 18:30 | NUR ---
Patient still has the muscle twitching even after dialysis. Dr. Christianson made aware.
--- NOTE | 2018-04-28 19:44 | NUR ---
Paged hospitalist transmission superintendent for right sided twitching even after dialysis. SEBASTIAN Evans is the transmission superintendent. Waiting for call back. Endorsed to Praveena MYRICK night baker.
--- NOTE | 2018-04-28 20:38 | NUR ---
Lindsay called back. New orders received for BMP and Magnesium lab draw. Will continue to monitor patient.
[2018-04-28 21:50] LABS: Calcium 8.4 mg/dL (8.5-10.1); Magnesium 2.5 mg/dL (1.6-2.6); Potassium 4.3 mmol/L (3.5-5.1)
[2018-04-28 22:00] VITALS: BP 155/67
[2018-04-28] MEDS: GABAPENTIN 300 MG CAP PO SCH (22:26)
[2018-04-28] MEDS: ATORVASTATIN 20 MG TAB PO SCH (22:26)
[2018-04-29 05:00] VITALS: BP 141/52
[2018-04-29] MEDS: ACCU-CHEK COMFORT CURVE STRIP VI SCH ×3 (06:17→17:07)
[2018-04-29] MEDS: InsuLIN REG 1unit/0.01ml Soln (100units/ml) SC SCH ×3 (06:17→17:07)
--- NOTE | 2018-04-29 07:35 | NUR ---
OPENING NOTE ASSUMED CARE OF PT. PT IS SITING ON BED, HOB SEMI-FOWLERS. PT IS A&O X4. ON 2 LPM/NC, O2 SATURATION 97%. NO SIGNS OF SOB/DISTRESS NOTED. ON TELE # 33, HR 65. SAFETY PRECAUTIONS IN PLACE INCLUDING, BED SET TO LOWEST POSITION/LOCKED, BEDSIDE RAILS UP X2, BED ALARM ON, CALL LIGHT WITHIN REACH. INSTRUCTED PT TO CALL FOR ASSISTANCE. DISCUSSED POC WITH PT. PT VERBALIZED UNDERSTANDING. WILL CONTINUE TO MONITOR Q 1HR AND PRN.
[2018-04-29] MEDS: SEVELAMER 800 MG TAB PO SCH ×3 (08:03→18:00)
[2018-04-29 08:48] VITALS: BP 149/66
[2018-04-29] MEDS: CARVEDILOL 3.125 MG TAB PO SCH (10:12)
[2018-04-29] MEDS: ASPirin-EC 81 mg tab PO SCH (10:12)
[2018-04-29] MEDS: ENALAPRIL MALEATE 10 MG TAB PO SCH (10:13)
[2018-04-29] MEDS: PANTOPRAZOLE 40 MG TAB PO SCH (10:13)
[2018-04-29] MEDS: amLODIPine BESYLATE 5 MG TAB PO SCH (10:13)
[2018-04-29 13:00] VITALS: BP 157/73
--- NOTE | 2018-04-29 13:46 | NUR ---
SPOKE WITH DR. MERCEDES AT BEDSIDE. PER DR. MERCEDES PATIENT IS CLEARED FROM HER STANDPOINT.
[2018-04-29 17:00] VITALS: BP 146/71
[2018-04-29 17:58] VITALS: BP 146/71
--- NOTE | 2018-04-29 19:04 | NUR ---
ENDORSE CARE TO RAMEZ ISSA. NURSE IS AWARE OF DISCHARGE/DISCHARGE PAPER PROVIDED.
--- NOTE | 2018-04-29 19:32 | NUR ---
OPENING NOTE Received report from day shift RN. Informed about patient's discharge. Patient is A&O X's 4 with no s/s of distress at this time. Currently waiting on family members to come and milk pickup driver patient. Bed is in lowest/locked position with side rails up X's 2. Educated patient to use call light when in need of assistance. Will continue to monitor and round hourly/PRN.
--- NOTE | 2018-04-29 19:34 | NUR ---
CALLED FAMILY MEMBER JENNIFER Tried to call family member at this time. No answer. Will try again to determine if they have an estimated time of arrival to picking machine operator helper the patient to go home.
--- NOTE | 2018-04-29 19:47 | NUR ---
SPOKE WITH PATIENT Spoke with patient and educated him about discharge. Patient states that he does not know any family member's phone number. He confirmed that Jaye is daughter in law but does not know if that is the correct number. Will continue to call number available
--- NOTE | 2018-04-29 21:07 | NUR ---
PATIENT DISCHARGED Patient's son and patient's family member Jaye present at bedside during time of discharge to take patient home. Patient and family were educated on discharge instructions, follow up appointment and that Dialysis will continue tomorrow. Discharge paperwork were given to the patient at this time. All questions were answered. Removed tele box 33 at this time and returned to [facility]. Left hand 20G IV was removed and dressing applied. Catheter was fully intact. Patient tolerated this well. All wrist bands were removed. Patient was transferred down in wheelchair. No s/s of distress or pain was noted at time of discharge.
[2018-04-30] MEDS ORDERED: SODIUM CHL 0.9% 1000 ML BAG XX ONE (08:00)
== END 2018-04-29 21:07 | disposition home or self-care (01) | DRG 291 ==
LOC: EDBD 10:32 → ER 10:35 → TELE 14:57 → TELE-CENTR 22:57
PROVIDERS: ADMIT Nurse Practitioner Acute Care; ATTEND Internal Medicine Pulmonary Disease
PROC: 5A1D70Z Performance of Urinary Filtration, Intermittent, Less than 6 Hours Per Day (ICD-10-PCS; principal; 2018-04-28)
DX: I13.2 Hypertensive heart and chronic kidney disease with heart failure and with stage 5 chronic kidney disease, or end stage renal disease (principal); J96.21 Acute and chronic respiratory failure with hypoxia; N18.6 End stage renal disease; I50.43 Acute on chronic combined systolic (congestive) and diastolic (congestive) heart failure; E87.1 Hypo-osmolality and hyponatremia; R55 Syncope and collapse; E87.5 Hyperkalemia; E11.22 Type 2 diabetes mellitus with diabetic chronic kidney disease; D69.6 Thrombocytopenia, unspecified; E78.5 Hyperlipidemia, unspecified; D63.1 Anemia in chronic kidney disease; E11.65 Type 2 diabetes mellitus with hyperglycemia; Z99.81 Dependence on supplemental oxygen; Z99.2 Dependence on renal dialysis; Z91.19 Patient's noncompliance with other medical treatment and regimen; Z79.4 Long term (current) use of insulin; Z79.899 Other long term (current) drug therapy; Z79.82 Long term (current) use of aspirin; Z88.5 Allergy status to narcotic agent; Z88.1 Allergy status to other antibiotic agents
CPT/HCPCS: 36415; 36600; 70450; 71045; 80048; 80053; 80061; 81001; 82805; 82962; 83036; 83735; 83880; 84100; 84443; 84484; 85025; 85610; 85730; 90935; 93005; G0378; J0610; J1815

== ENCOUNTER 2018-06-28 10:53 | Inpatient (IN) | payer MEDICARE, MEDICAID | END 2018-07-01 17:00 | disposition home health service (06) | LOC: TELE-WESTW 06-29 19:00 → ER 10:53 → TELE 13:43 → TELE-WESTW 15:15 | DX: R56.9 Unspecified convulsions (principal); N18.6 End stage renal disease; I50.42 Chronic combined systolic (congestive) and diastolic (congestive) heart failure; E44.1 Mild protein-calorie malnutrition; J96.11 Chronic respiratory failure with hypoxia; G62.9 Polyneuropathy, unspecified; E11.22 Type 2 diabetes mellitus with diabetic chronic kidney disease; Z79.4 Long term (current) use of insulin; Z99.2 Dependence on renal dialysis; D63.8 Anemia in other chronic diseases classified elsewhere; D72.819 Decreased white blood cell count, unspecified; D69.6 Thrombocytopenia, unspecified; E11.42 Type 2 diabetes mellitus with diabetic polyneuropathy; E11.21 Type 2 diabetes mellitus with diabetic nephropathy; E87.5 Hyperkalemia; J40 Bronchitis, not specified as acute or chronic ==